=== PATIENT | male | born 1990 | race Caucasian/White ===

== ENCOUNTER 2019-03-08 23:38 | Emergency (ER) | payer OTHER ==
[~2019-03-08] VITALS: Ht 175.3 cm; Wt 111.1 kg
[2019-03-08 23:47] VITALS: Ht 175.3 cm; Wt 111.1 kg
[2019-03-08 23:58] VITALS: BP 147/97
== END 2019-03-08 23:58 | disposition other institution (70) ==
LOC: ED 23:38
DX: Z02.89 Encounter for other administrative examinations (principal)
CPT/HCPCS: J7030